=== PATIENT | male | born 1960 | race Caucasian/White ===

== ENCOUNTER → 2019-08-13 | Outpatient (CLI) | payer BC, OTHER ==
[~2019-08-13] MED LIST: ASPIRIN81 M2 PO; HYDROCODONE-AP1 EAC6 PO; MELOXICAM7.5 MG PO; MOBIC7.5 M1 PO; NABUMETONE 500500 M1 PO; NIASPAN ER 101000 M1 PO; PANTOPRAZOLE SO40 M1 PO; TIZANIDINE HCL4 MG PO; TRAMADOL 50 MG50 MG PO; VASCEPA1 GM PO; ZANAFLEX4 M1 PO; ZETIA10 MG PO
== END ==
LOC: CAT 08:25
DX: R10.9 Unspecified abdominal pain (principal)

== ENCOUNTER → 2020-10-24 | Outpatient (CLI) | payer OTHER | LOC: RAD 07:59 | PROVIDERS: ATTEND Family Medicine | DX: Z13.6 Encounter for screening for cardiovascular disorders (principal); I25.10 Atherosclerotic heart disease of native coronary artery without angina pectoris; E78.00 Pure hypercholesterolemia, unspecified ==